=== PATIENT | male | born 1980 | race Caucasian/White ===

== ENCOUNTER 2016-10-02 10:10 | Emergency (ER) | payer OTHER ==
[~2016-10-02] VITALS: Ht 167.6 cm; Wt 100.0 kg
[2016-10-02] MEDS ORDERED: ALBU17IN INH (10:21)
[2016-10-02] MEDS ORDERED: FLON1SPR (11:08)
[2016-10-02 11:54] VITALS: BP 130/79
== END 2016-10-02 11:59 | disposition home or self-care (01) ==
LOC: M ED 10:33
DX: Z11.4 Encounter for screening for human immunodeficiency virus [HIV] (principal); R09.81 Nasal congestion; J45.909 Unspecified asthma, uncomplicated; Z79.899 Other long term (current) drug therapy

== ENCOUNTER 2018-12-22 21:35 | Emergency (ER) | payer OTHER, SELFPAY ==
[~2018-12-22] VITALS: Ht 167.6 cm; Wt 111.6 kg
[~2018-12-22 21:35] MED LIST: ALBU17IN INH; FLON1SPR
[2018-12-22 22:46] LABS: BASO # 0.1 10^3/uL (0.0-0.2); BASO % 1.2 % (0.0-1.0); EOS # 0.4 10^3/uL (0.0-0.5); EOS % 4.3 % (0.0-3.0); HEMATOCRIT 43.2 % (42.0-52.0); LYMPH # 2.7 10^3/uL (1.5-5.0); LYMPH % 32.4 % (24.0-44.0); MEAN CORPUSCULAR HEMOGLOBIN 29.6 pg (27.0-33.0); MEAN CORPUSCULAR HGB CONC 34.7 g/dl (32.0-36.5); MEAN CORPUSCULAR VOLUME 85.4 fl (80.0-96.0); MONO # 0.6 10^3/uL (0.0-0.8); MONO % 7.6 % (0.0-5.0); NEUTROPHILS # 4.5 10^3/uL (1.5-8.5); NEUTROPHILS % 54.1 % (36.0-66.0); PLATELET COUNT, AUTOMATED 243 10^3/uL (150-450); RED BLOOD COUNT 5.06 10^6/uL (4.30-6.10); WHITE BLOOD COUNT 8.4 10^3/uL (4.0-10.0)
[2018-12-22] MEDS: IPRATROPIUM 0.5MG/ALBUTEROL 2.5MG INH SOL UD 3ML (DUONEB)(J7620) NEB PRN ×2 (22:51→23:31)
[2018-12-22] MEDS ORDERED: predniSONE 20 MG TAB PO ONE (23:30)
[2018-12-23] MEDS ORDERED: PRED20TA PO (00:09)
[2018-12-23 00:15] VITALS: BP 126/78
--- NOTE | 2018-12-23 07:53 | REP ---
PA and lateral chest: Comparison is 12/21/2014. The lung sagastume are clear. The cardiac size is normal. The star, mediastinum, and skeletal structures are unremarkable. Impression: Negative PA and lateral chest. There is no interval change. Electronically Signed by Rhett Garcia MD 12/23/2018 07:45 A
== END 2018-12-23 00:16 | disposition home or self-care (01) ==
LOC: M ED 21:35
DX: J45.901 Unspecified asthma with (acute) exacerbation (principal)